=== PATIENT | female | born 1950 | race Caucasian/White ===

== ENCOUNTER 2017-06-29 05:55 | Day surgery (SDC) | payer BC ==
[2017-06-29] MEDS ORDERED: LIDOCAINE 1% (MPF) 10 ML INJ (06:50)
[2017-06-29 07:29] LABS: ADD MAN DIFF? NO
[2017-06-29 07:32] LABS: BASOPHILS % 0.4 % (0.0-2.0); EOSINOPHILS # 0.1 10^3/ul (0.0-0.5); EOSINOPHILS % 1.5 % (0.0-7.0); HEMATOCRIT 36.9 % (37.0-47.0); HEMOGLOBIN 12.6 g/dl (12.0-16.0); LYMPHOCYTES % 41.4 % (15.0-51.0); MEAN CORPUSCULAR HEMOGLOBIN 29.6 pg (29.0-33.0); MEAN CORPUSCULAR HGB CONC 34.1 g/dl (32.0-37.0); MEAN CORPUSCULAR VOLUME 86.6 fl (82.0-101.0); MEAN PLATELET VOLUME 9.7 fl (7.4-10.4); MONOCYTE # 0.6 10^3/ul (0.3-0.9); MONOCYTES % 8.8 % (0.0-11.0); NEUTROPHIL # 3.4 10^3/ul (1.6-7.5); NEUTROPHILS % 47.6 % (39.0-77.0); PLATELET COUNT 238 10^3/UL (140-415); RED BLOOD COUNT 4.26 10^6/ul (4.20-5.40); RED CELL DISTRIBUTION WIDTH 12.4 % (11.5-14.5)
[2017-06-29 07:32] LABS: WHITE BLOOD COUNT 7.2 10^3/ul (4.8-10.8)
[2017-06-29] MEDS ORDERED: FENTAnyl 50 MCG/ML VIAL (07:51)
[2017-06-29] MEDS ORDERED: HYDROCODONE/APAP (5/325) TAB PO ×2 (08:00)
[2017-06-29] MEDS ORDERED: ONDANSETRON 4 MG INJ IV (08:00)
[2017-06-29] MEDS ORDERED: SUCCINYLCHOLINE CHLORIDE 100 MG/5 ML SYG IV (08:16)
[2017-06-29] MEDS ORDERED: ROCURONIUM 50 MG INJ (08:16)
[2017-06-29] MEDS ORDERED: PROPOFOL 20 ML (08:16)
[2017-06-29] MEDS ORDERED: CEFAZOLIN 1 GM INJ (08:16)
[2017-06-29] MEDS ORDERED: SUGAMMADEX SODIUM 200 MG/2 ML VIAL IV (08:16)
[2017-06-29] MEDS ORDERED: LIDOCAINE 100 MG SYRINGE (08:16)
[2017-06-29] MEDS: TRIAMCINOLONE ACET 40 MG/ML INJ (08:20)
[2017-06-29] MEDS: LIDOCAINE 1% (MPF) 30 ML INJ (08:20)
[2017-06-29] MEDS: HYDROmorphONE (0.2 MG/ML) 10ML SYG IV (08:53)
[2017-06-29] MEDS: ONDANSETRON 4 MG INJ IV (08:55)
[2017-06-29] MEDS ORDERED: HYDROmorphONE (0.2 MG/ML) 10ML SYG IV ×2 (09:00)
[2017-06-29] MEDS ORDERED: MEPERIDINE 25 MG INJ IV (09:00)
[2017-06-29] MEDS ORDERED: DIPHENHYDRAMINE 50 MG INJ IV (09:00)
[2017-06-29] MEDS ORDERED: FENTAnyl 50 MCG/ML VIAL IV ×2 (09:00)
[2017-06-29] MEDS ORDERED: METOCLOPRAMIDE 10 MG INJ IV (09:00)
[2017-06-29] MEDS ORDERED: CEFAZOLIN 2 GM/50 ML (PMX) 50 ML IVPB (09:30)
== END 2017-06-29 10:40 | disposition home or self-care (01) ==
LOC: SDS 05:55
DX: M23.221 Derangement of posterior horn of medial meniscus due to old tear or injury, right knee (principal); I10 Essential (primary) hypertension; E78.5 Hyperlipidemia, unspecified
CPT/HCPCS: 29881; 85025